=== PATIENT | female | born 1990 | race Hispanic/Latino ===

== ENCOUNTER 2018-06-28 00:14 | Emergency (ER) | payer SELFPAY ==
[2018-06-28 00:29] VITALS: O2SAT 96
[2018-06-28] MEDS ORDERED: Promethazine/Cod 6.25mg-10mg/5ml Syr UD PO STA (00:45)
[2018-06-28] MEDS ORDERED: Albuterol 0.083% Inhal Sol (2.5 mg/3 mL) UD ONE (00:48)
[2018-06-28] MEDS: Albuterol 0.083% Inhal Sol (2.5 mg/3 mL) UD INH SCH ×2 (00:51→00:55)
[2018-06-28] MEDS ORDERED: Promethazine/Cod 6.25mg-10mg/5ml Syr UD ONE (00:56)
--- NOTE | 2018-06-28 01:37 | C.PDOC ---
History Of Present Illness 28 year old female presents to the ED c/o dry cough associated with nasal congestion for the past 2 weeks. Patient states now she has yellow phlegm, chest and back pain after coughing and deep breathing. Patient denies fever, chills, nausea, vomit, SOB, wheezing, recent travel, sick contacts. Time Seen by Provider: 06/28/18 00:29 Chief Complaint (Nursing): Cough, Cold, Congestion History Per: Patient History/Exam Limitations: no limitations Onset/Duration Of Symptoms: Days Current Symptoms Are (Timing): Still Present Location Of Pain: Throat, Sinus/es Sick Contacts (Context): None Associated Symptoms: Cough, Sputum, Nasal Congestion Ear Symptoms: Bilateral: None Recent travel outside of the [place]: No Additional History Per: Patient Past Medical History Reviewed: Historical Data, Nursing Documentation, Vital Signs Vital Signs: Last Vital Signs Temp 98.2 F 06/28/18 00:25 Pulse 74 06/28/18 00:25 Resp 22 06/28/18 00:25 BP 129/85 06/28/18 00:25 Pulse Ox 96 06/28/18 01:38 - Medical History PMH: No Chronic Diseases Surgical History: No Surg Hx Family History: States: Unknown Family Hx - Social History Hx Alcohol Use: Yes Hx Substance Use: No - Immunization History Hx Tetanus Toxoid Vaccination: No Hx Influenza Vaccination: No Hx Pneumococcal Vaccination: No Review Of Systems Constitutional: Negative for: Fever, Chills ENT: Positive for: Nose Discharge, Nose Congestion. Negative for: Throat Pain, Throat Swelling Respiratory: Positive for: Cough, Sputum. Negative for: Shortness of Breath Gastrointestinal: Negative for: Nausea, Vomiting Skin: Negative for: Rash Neurological: Negative for: Headache Physical Exam - Physical Exam Appears: Non-toxic, No Acute Distress Skin: Normal Color, Warm, Dry Head: Atraumatic, Normacephalic Eye(s): bilateral: Normal Inspection Ear(s): Bilateral: Normal Nose: No Discharge Oral Mucosa: Moist Throat: Normal, No Erythema, No Exudate Neck: Normal ROM, Supple Chest: Symmetrical Cardiovascular: Rhythm Regular Respiratory: Decreased Breath Sounds, No Rales, Rhonchi, No Wheezing Gastrointestinal/Abdominal: Soft, No Tenderness, No Guarding, No Rebound Extremity: Normal ROM, No Tenderness, No Swelling Neurological/Psych: Oriented x3, Normal Speech Gait: Steady ED Course And Treatment O2 Sat by Pulse Oximetry: 96 (ON RA) Pulse Ox Interpretation: Normal - Radiology CXR: Interpreted by Me, Viewed By Me CXR Interpretation: Yes: No Acute Disease. No: Infiltrates, Cardiomegaly Progress Note: Plan: - CXR. - Albuterol X2. - Motrin 600 mg PO. - Phenergan/ codeine 5 mg PO. - Prednisone 60 mg PO. - Saline Nebulizer. On reassessment, patient is resting comfortably with no wheezing, chest pain, or retractions. Oxygen saturation and breath sounds have improved. Patient is alert and oriented x 3. Patient was advised to follow up with physician/clinic in 1-2 days and return to ED if symptoms worsen or persist. Disposition Counseled Patient/Family Regarding: Diagnosis, Need For Followup, Rx Given - Disposition Disposition: HOME/ ROUTINE Disposition Time: 01:35 Condition: STABLE Additional Instructions: Please increase PO fluids' Take medications as directed Use a humidifier machine Return to ER if worse Prescriptions: Albuterol HFA [Ventolin HFA 90 mcg/actuation (8 g)] 2 puff IH [id number] #1 inhaler Benzonatate [Tessalon Perles] 100 mg PO TID #14 sgl Cetirizine HCl [Zyrtec] 10 mg PO DAILY #10 capsule Ibuprofen [Motrin] 600 mg PO Q6H #20 tab predniSONE [Prednisone] 40 mg PO DAILY #8 tab Instructions: Upper Respiratory Infection (ED) Forms: [employer] (Spanish), Work Excuse - Clinical Impression Clinical Impression: Upper respiratory infection - 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 - Scribe Statement The provider has reviewed the documentation as recorded by the Scribe Wally Treviño All medical record entries made by the Scribe were at my direction and personally dictated by me. I have reviewed the chart and agree that the record accurately reflects my personal performance of the history, physical exam, medical decision making, and the department course for this patient. I have also personally directed, reviewed, and agree with the discharge instructions and disposition.
[2018-06-28 01:57] VITALS: BP 110/71; PULSE 84; RESP 20; TEMP 98.5
--- NOTE | 2018-06-28 07:56 | RAD ---
Date of service: 06/28/2018 HISTORY: cough, chest tightness COMPARISON: No prior. TECHNIQUE: Chest PA and lateral FINDINGS: LUNGS: No consolidation. Small granulomas each upper lobe suspect. PLEURA: No significant pleural effusion identified. No pneumothorax apparent. CARDIOVASCULAR: Normal heart size. Bronchovascular markings borderline prominent - bronchitis possible. OSSEOUS STRUCTURES: No significant abnormalities. VISUALIZED UPPER ABDOMEN: Normal. OTHER FINDINGS: None. IMPRESSION: No consolidation. Normal heart size. Bronchovascular markings borderline prominent - bronchitis possible. Probable granulomas
== END 2018-06-28 01:50 | disposition home or self-care (01) ==
LOC: C.ER 00:14
DX: J06.9 Acute upper respiratory infection, unspecified (principal)

== ENCOUNTER 2018-07-19 22:59 | Emergency (ER) | payer SELFPAY ==
[2018-07-19 23:12] VITALS: BP 141/73; PULSE 91; RESP 18; TEMP 98.5; O2SAT 99
--- NOTE | 2018-07-20 00:09 | C.PDOC ---
History Of Present Illness 28 y/o female presents to the ED with complaints of cough and chest congestion for over 3 weeks. Seen in the ED 3 weeks ago and was treated for bronchitis, had CXR at that time. Patient states symptoms had improved while taking meds, but are now recurring since medications have been completed. Denies any fever, chills, SOB, palpitations, dizziness, vomiting, or diarrhea. Patient is also concerned because she has an aunt who she resides with who was recently diagnosed with walking pneumonia. Time Seen by Provider: 07/19/18 23:18 Chief Complaint (Nursing): Cough, Cold, Congestion History Per: Patient History/Exam Limitations: no limitations Onset/Duration Of Symptoms: Days Current Symptoms Are (Timing): Still Present Associated Symptoms: Cough Past Medical History Reviewed: Historical Data, Nursing Documentation, Vital Signs Vital Signs: Last Vital Signs Temp 98.5 F 07/19/18 23:08 Pulse 91 H 07/19/18 23:08 Resp 18 07/19/18 23:08 BP 141/73 07/19/18 23:08 Pulse Ox 99 07/20/18 02:57 - Medical History PMH: No Chronic Diseases Surgical History: No Surg Hx Family History: States: Unknown Family Hx - Social History Hx Tobacco Use: Yes Hx Alcohol Use: Yes Hx Substance Use: No - Immunization History Hx Tetanus Toxoid Vaccination: No Hx Influenza Vaccination: No Hx Pneumococcal Vaccination: No Review Of Systems Except As Marked, All Systems Reviewed And Found Negative. Constitutional: Negative for: Fever, Chills ENT: Positive for: Other (Chest congestion). Negative for: Throat Pain Respiratory: Positive for: Cough. Negative for: Shortness of Breath, Wheezing Gastrointestinal: Negative for: Nausea, Vomiting, Diarrhea Neurological: Negative for: Headache, Dizziness Physical Exam - Physical Exam Appears: Non-toxic, No Acute Distress, Other (O2 sat is 99% on RA) Skin: Normal Color, Warm, Dry Head: Atraumatic, Normacephalic Eye(s): bilateral: Normal Inspection, PERRL, EOMI Oral Mucosa: Moist Neck: Normal ROM Chest: Symmetrical Cardiovascular: Rhythm Regular, No Murmur Respiratory: No Accessory Muscle Use, No Rales, No Rhonchi, No Wheezing, Other ( No retractions, lungs clear bilaterally) Gastrointestinal/Abdominal: Soft, No Tenderness Extremity: Bilateral: Atraumatic, Normal Color And Temperature Neurological/Psych: Oriented x3, Normal Speech ED Course And Treatment O2 Sat by Pulse Oximetry: 99 (room air) Pulse Ox Interpretation: Normal Progress Note: Official report of x-ray reviewed, and there were no infiltrates seen. Patient was notified of small granulomas in the upper lungs, and advised to follow up with PMD. Pt in no resp distress, VSS. Given prescriptions for bromfed DM, zyrtec, and prednisone. Reassessment Condition: Improved Disposition Counseled Patient/Family Regarding: Diagnosis, Need For Followup, Rx Given - Disposition Referrals: Non [facility] Provider, [Primary Care Provider] - [facility] [Outside] Disposition: HOME/ ROUTINE Disposition Time: 00:07 Condition: STABLE Additional Instructions: Please follow up with PMD or in clinic Take medications as directed Follow up XR in clinic Return to ER if worse Prescriptions: Brompheniramine/Pseudoephed/Dm [Bromfed Dm Cough Syrup] 10 ml PO Q6 #1 syrup Cetirizine HCl [Zyrtec] 10 mg PO DAILY #14 capsule predniSONE [Prednisone] 40 mg PO DAILY #10 tab Instructions: Upper Respiratory Infection (ED) Forms: [employer] (Belgian) - Clinical Impression Clinical Impression: Upper respiratory infection - PA / [employer]Y / Resident Statement MD/DO has reviewed & agrees with the documentation as recorded. - Scribe Statement The provider has reviewed the documentation as recorded by the Scribe (Tonia Rae) All medical record entries made by the Scribe were at my direction and personally dictated by me. I have reviewed the chart and agree that the record accurately reflects my personal performance of the history, physical exam, medical decision making, and the department course for this patient. I have also personally directed, reviewed, and agree with the discharge instructions and disposition.
== END 2018-07-20 00:17 | disposition home or self-care (01) ==
LOC: C.ER 22:59 → SUPCPDRO 22:59 → C.ER 07-20 00:17
DX: J06.9 Acute upper respiratory infection, unspecified (principal); Z72.0 Tobacco use

== ENCOUNTER 2018-10-19 15:07 | Emergency (ER) | payer MEDICAID ==
[2018-10-19 15:22] VITALS: BP 103/71; PULSE 76; RESP 18; TEMP 98; O2SAT 100
--- NOTE | 2018-10-19 15:52 | C.PDOC ---
History Of Present Illness 28 y/o female presents to the ED for evaluation of left arm burn for 2 weeks. Patient states her cat accidentally knocked a pot with hot oil onto her left arm. She reports applying peroxide daily and triple antibiotic cream for several days, now with increasing redness. Patient admits to picking at the area, previously with pus blisters, which have now resolved. She denies any fever or other injuries. Time Seen by Provider: 10/19/18 15:34 Chief Complaint (Nursing): Burn History Per: Patient History/Exam Limitations: no limitations Injury Occurred (Timing): Days Ago: (14) Type Of Burn (Context): Hot Liquid Past Medical History Reviewed: Historical Data, Nursing Documentation, Vital Signs Vital Signs: Last Vital Signs Temp 98.0 F 10/19/18 15:20 Pulse 76 10/19/18 15:20 Resp 18 10/19/18 15:20 BP 103/71 10/19/18 15:20 Pulse Ox 100 10/19/18 15:20 - Medical History PMH: No Chronic Diseases Surgical History: No Surg Hx Family History: States: Unknown Family Hx - Social History Hx Tobacco Use: Yes Hx Alcohol Use: Yes Hx Substance Use: No - Immunization History Hx Tetanus Toxoid Vaccination: No Hx Influenza Vaccination: No Hx Pneumococcal Vaccination: No Review Of Systems Except As Marked, All Systems Reviewed And Found Negative. Constitutional: Negative for: Fever Skin: Positive for: Other (Left arm burn) Neurological: Negative for: Weakness, Numbness, Incoordination Physical Exam - Physical Exam Appears: Well, Non-toxic, No Acute Distress Chest: Symmetrical Respiratory: No Accessory Muscle Use, Other (NARD) Extremity: Normal ROM (with AROM of left arm without difficulty), No Deformity, No Swelling, Other (Healing 2nd degree burn to left mid lower arm and proximal forearm, + extensive excoriations and dried skin. No blisters, pustules, or discharge. + Localized cellulitis, no lymphangitis) Pulses: Left Radial: Normal, Right Radial: Normal Neurological/Psych: Oriented x3, Normal Speech Gait: Steady ED Course And Treatment O2 Sat by Pulse Oximetry: 100 (RA) Pulse Ox Interpretation: Normal Medical Decision Making Medical Decision Making: Plan: Proper skin care instructed. Plan is to d/c home with peroxide. Patient states requesting silvadene RX. Disposition Counseled Patient/Family Regarding: Diagnosis, Need For Followup, Rx Given - Disposition Referrals: [facility],P[facility] [Other] [facility] [Other] Disposition: HOME/ ROUTINE Disposition Time: 15:51 Condition: IMPROVED Prescriptions: Cephalexin [cephalexin] 500 mg PO BID #14 cap Silver Sulfadiazine [Silvadene] 1 ea TP BID #1 cream..g. Instructions: Skin Fields (DC) Forms: [employer] (Croatian) - Clinical Impression Clinical Impression: Cellulitis of arm, Burn of arm, second degree - Scribe Statement The provider has reviewed the documentation as recorded by the Luis Rae Provider Attestation: All medical record entries made by the Luis were at my direction and personally dictated by me. I have reviewed the chart and agree that the record accurately reflects my personal performance of the history, physical exam, medical decision making, and the department course for this patient. I have also personally directed, reviewed, and agree with the discharge instructions and disposition.
== END 2018-10-19 16:01 | disposition home or self-care (01) ==
LOC: C.ER 15:07
DX: T22.212A Burn of second degree of left forearm, initial encounter (principal); X10.2XXA Contact with fats and cooking oils, initial encounter; L03.114 Cellulitis of left upper limb